=== PATIENT | male | born 1940 | race Caucasian/White ===

== ENCOUNTER 2017-07-24 15:03 | Emergency (ER) | payer OTHER ==
[~2017-07-24] VITALS: Ht 177.8 cm; Wt 125.8 kg
[~2017-07-24 15:03] MED LIST: ATORVASTATIN CA40 MG PO; AUGMENTIN500 MG PO; CALCITRIOL0.25 MCG PO; LOSARTAN POTASS25 MG PO; NORCO 5/3251 TABLET PO; TYLENOL REGULA325 MG PO; VICODIN 5-3001 EACH PO
[2017-07-24] MEDS ORDERED: COZAAR25 MG PO (16:04)
[2017-07-24 16:23] VITALS: BP 193/100
== END 2017-07-24 16:25 | disposition home or self-care (01) ==
LOC: EME 15:03
DX: I10 Essential (primary) hypertension (principal); T46.5X6A Underdosing of other antihypertensive drugs, initial encounter; Z91.128 Patient's intentional underdosing of medication regimen for other reason; E78.5 Hyperlipidemia, unspecified; Z87.891 Personal history of nicotine dependence; Z95.1 Presence of aortocoronary bypass graft
CPT/HCPCS: 99281; 99283